=== PATIENT | female | born 1980 | race Caucasian/White ===

== ENCOUNTER 2021-05-17 13:12 | Emergency (ER) | payer OTHER, BC ==
[~2021-05-17] VITALS: Ht 177.8 cm; Wt 97.0 kg
[~2021-05-17 13:12] MED LIST: CLIN300C9 PO; IBUP200C8 PO; METH2TAB PO
--- NOTE | 2021-05-17 14:26 | NUR ---
PLUMBER'S ASSISTANT: PT TO ROOM FROM LOBBY VIA W/C
--- NOTE | 2021-05-17 14:52 | NUR ---
PIV PLACED BY CERTIFIED RECREATIONAL THERAPIST. LABS AND 2 SETS BLOOD CX DRAWN AND COLLECTED BY CERTIFIED FLIGHT INSTRUCTOR.
[2021-05-17] MEDS ORDERED: SODIUM CHLORIDE 0.9% 1,000ML IVBOLUS ONE (15:00)
[2021-05-17] MEDS ORDERED: AMPICILLIN/SULBACTAM 3 GM in SODIUM CHLORIDE 0.9% 100 ML IV ONE (15:00)
[2021-05-17] MEDS ORDERED: MORPHINE SULFATE 4 MG/ML, 1ML IV PRN (15:00)
[2021-05-17] MEDS ORDERED: ONDANSETRON 2MG/ML, 2ML IVPush ONE (15:00)
[2021-05-17] MEDS ORDERED: MORPHINE SULFATE 4 MG/ML, 1ML ONE (15:08)
[2021-05-17] MEDS ORDERED: ONDANSETRON 2MG/ML, 2ML ONE (15:08)
[2021-05-17 15:15] LABS: ANION GAP 7 mmol/L (5-15); CALCIUM 8.9 mg/dL (8.5-10.1); CHLORIDE 108 mmol/L (98-107); CREATININE 0.47 mg/dL (0.55-1.02)
[2021-05-17 15:19] LABS: MEAN CORPUSCULAR HEMOGLOBIN 31.3 pg (27.0-34.8); MEAN CORPUSCULAR HGB CONC 33.9 g/dL (32.4-35.8)
[2021-05-17 15:21] VITALS: BP 125/68
--- NOTE | 2021-05-17 15:21 | NUR ---
MEDS ADMIN PER JAN. IVF RUNNING. ABX STARTED. 2 SETS BLOOD CX COLLECTED PRIOR TO ADMIN.
[2021-05-17 15:25] LABS: BASOPHILS % (AUTO) 1 % (0-1); EOSINOPHILS % (AUTO) 1 % (1-7); LYMPHOCYTES % (AUTO) 13 % (22-44); MEAN PLATELET VOLUME 7.6 fL (7.4-10.4); MONOCYTES % (AUTO) 7 % (2-9); NEUTROPHILS % (AUTO) 79 % (42-75); RED BLOOD COUNT 4.47 x10^6/uL (3.82-5.3); RED CELL DISTRIBUTION WIDTH 12.6 % (9.6-15.2)
[2021-05-17 15:42] LABS: PLATELET COUNT 211 x10^3/uL (130-400)
--- NOTE | 2021-05-17 15:46 | NUR ---
ALL RESULTS ARE BACK AT THIS TIME. CHART UP FOR RECHECK.
--- NOTE | 2021-05-17 15:57 | NUR ---
ERMD AT BEDSIDE TO UPDATE PT ON POC.
[2021-05-17 16:27] LABS: HCT (SEDRATE) 41.4 % (34.6-47.8)
== END 2021-05-17 16:43 | disposition home or self-care (01) ==
LOC: ED 15:04
DX: L03.115 Cellulitis of right lower limb (principal)
CPT/HCPCS: 36415; 73630; 80048; 83605; 85025; 85651; 86140; 87040; 96365; 96375; 99284; J0295; J2270; J2405; J7030

== ENCOUNTER → 2021-08-21 | Outpatient (CLI) | payer OTHER, BC ==
[2021-08-21 09:01] LABS: BASOPHILS % (AUTO) 1 % (0-1); EOSINOPHILS % (AUTO) 1 % (1-7); LYMPHOCYTES % (AUTO) 28 % (22-44); MEAN CORPUSCULAR HGB CONC 34.4 g/dL (32.4-35.8); MEAN PLATELET VOLUME 6.9 fL (7.4-10.4); MONOCYTES % (AUTO) 6 % (2-9); NEUTROPHILS % (AUTO) 64 % (42-75); PLATELET COUNT 275 x10^3/uL (130-400); RED BLOOD COUNT 4.73 x10^6/uL (3.82-5.3); RED CELL DISTRIBUTION WIDTH 12.6 % (9.6-15.2)
[2021-08-21 09:04] LABS: HCT (SEDRATE) 44.2 % (34.6-47.8)
[2021-08-21 09:07] LABS: ANION GAP 4 mmol/L (5-15); C-REACTIVE PROTEIN, QUANT 0.15 mg/dL (0.02-0.49); CALCIUM 8.9 mg/dL (8.5-10.1); CHLORIDE 108 mmol/L (98-107); CREATININE 0.81 mg/dL (0.55-1.02)
== END | disposition home or self-care (01) ==
LOC: LAB 08:38
PROVIDERS: ATTEND Orthopaedic Surgery
DX: M20.11 Hallux valgus (acquired), right foot (principal)
CPT/HCPCS: 36415; 80048; 85025; 85651; 86140